=== PATIENT | male | born 1990 ===

== ENCOUNTER 2024-06-27 14:09 | Emergency (ER) | payer OTHER ==
[~2024-06-27] VITALS: Ht 162.6 cm; Wt 56.8 kg
[2024-06-27 15:45] VITALS: BP 124/81; PULSE 88; RESP 16; TEMP 98.1; O2SAT 100
[2024-06-27] MEDS: DOXYCYCLINE HYCLATE 100 MG TABLET PO ONE (17:29)
[2024-06-27] MEDS: HYDROCODONE/ACETAMINOPHEN 5-325 MG TABLET PO ONE (17:29)
== END 2024-06-27 18:04 ==
LOC: EMS 14:09
DX: L02.416 Cutaneous abscess of left lower limb (principal)
CPT/HCPCS: 99283